=== PATIENT | female | born 1960 | race Two or more races ===

== ENCOUNTER → 2016-06-09 | Outpatient (CLI) | payer OTHER ==
--- NOTE | ~2016-06-09 | MY11 ---
[facility] A Service of [facility] RADIOLOGY TEXT RESULTS PATIENT: MERCY MAY LOCATION: [facility] : 64 UNIT #: [id number] AGE: [address]: YANELIS MCCULLOUGH APRN SEX: F ORDER DR: [id number] [facility] [address] [place], [place] [address] [id number] O MR#: [id number] Acc #: [id number] NAME: MERCY MAY : 1960 SEX: F STUDY DATE/TIME: 06/09/2016 10:26 UNIT: [facility] ROOM: STUDY DESCRIPTION: MY Mammogram Screening Dig Josh Attending Physician: Tatum Mccullough M.D. Ordering Physician: Tatum Mccullough M.D. Primary Care Physician: Rj Conn M.D. MEDICAL IMAGING REPORT This report is preliminary unless electronic signature is present EXAM Digital screening mammogram with CAD HISTORY Routine screening PROCEDURE Bilateral CC and MLO views obtained on a digital mammography unit. FDA-approved CAD device utilized. COMPARISON 02/21/2013 and 05/13/2006 FINDINGS Scattered fibroglandular density. There is no dominant mass. There is a 10.0 mm asymmetry in the lateral left breast not seen on the priors. It is not well placed on the MLO view. IMPRESSION Incomplete. Recommend left diagnostic mammogram to evaluate a 10.0 mm asymmetry in the lateral left breast not seen on prior studies. Recommend a true lateral view and spot compression views. If an abnormality persists, and can be localized, ultrasound is suggested at that time. Patients over the age of 40 are entered into a reminder system with target due date for the next mammogram. A result letter will also be sent to the patient. BIRADS 0 Incomplete: Need Additional Imaging Evaluation and/or Prior Mammograms for Comparison [facility] A Service of [facility] RADIOLOGY TEXT RESULTS PATIENT: MERCY MAY LOCATION: [facility] : 64 UNIT #: [id number] AGE: [address]: YANELIS MCCULLOUGH APRN SEX: F ORDER DR: Dictated by... Chris Erwin M.D. THIS IS AN ELECTRONICALLY VERIFIED REPORT Chris Erwin M.D. at 06/11/2016 7:08 AM Shemar TD: 06/10/2016 15:38 JOB #: [id number] MEDICAL IMAGING REPORT COPY
== END | disposition home or self-care (01) ==
LOC: CWCC 10:08
DX: Z12.31 Encounter for screening mammogram for malignant neoplasm of breast (principal); R92.8 Other abnormal and inconclusive findings on diagnostic imaging of breast
CPT/HCPCS: G0202

== ENCOUNTER → 2016-06-23 | Outpatient (CLI) | payer OTHER ==
--- NOTE | ~2016-06-23 | US24 ---
[facility] A Service of [facility] RADIOLOGY TEXT RESULTS PATIENT: MERCY MAY LOCATION: [facility] : 64 UNIT #: [id number] AGE: [address]: ODETTE MCCULLOUGH APRN SEX: F ORDER DR: [id number] [facility] [address], [place] [address] [id number] O MR#: [id number] Acc #: [id number] NAME: MERCY MAY : 1960 SEX: F STUDY DATE/TIME: 06/23/2016 8:34 UNIT: [facility] ROOM: STUDY DESCRIPTION: US Breast Unilateral Attending Physician: Odette Mccullough Referring Physician: Odette Mccullough Ordering Physician: Tatum Mccullough M.D. Primary Care Physician: Rj Conn M.D. MEDICAL IMAGING REPORT This report is preliminary unless electronic signature is present EXAM Targeted ultrasound left breast 06/23/2016 Please see additional views left breast same date for combined report. BIRADS: 3- Probably benign findings. Short term followup recommended. Dictated by... Papo Lizama M.D. THIS IS AN ELECTRONICALLY VERIFIED REPORT Papo Lizama M.D. at 06/23/2016 4:11 PM HERSON/minoo TD: 06/23/2016 11:21 JOB #: [id number] MEDICAL IMAGING REPORT COPY
--- NOTE | ~2016-06-23 | MY7 ---
[facility] A Service of [facility] RADIOLOGY TEXT RESULTS PATIENT: MERCY MAY LOCATION: [facility] : 64 UNIT #: [id number] AGE: [address]: YANELIS MCCULLOUGH APRN SEX: F ORDER DR: [id number] [facility] [address] [place], [place] [address] [id number] O MR#: [id number] Acc #: [id number] NAME: MERCY MAY : 1960 SEX: F STUDY DATE/TIME: 06/23/2016 8:07 UNIT: [facility] ROOM: STUDY DESCRIPTION: MY Mammogram Dx Dig Lt Attending Physician: Tatum Mccullough M.D. Referring Physician: Tatum Mccullough M.D. Ordering Physician: Tatum Mccullough M.D. Primary Care Physician: Rj Conn M.D. MEDICAL IMAGING REPORT This report is preliminary unless electronic signature is present EXAM Additional views of the left breast and targeted left breast ultrasound 07/10/2016 INDICATION 56-year-old female returning for additional views of the left breast for a nodular asymmetry identified on her recent screening study of 06/09/2016. No new problems. TECHNIQUE MLO, true lateral, and spot CC, MLO and exaggerated CC lateral views of the left breast were obtained and reviewed with an FDA-approved CAD device. COMPARISON 06/09/2016, 02/21/2013, 05/13/2006. FINDINGS MAMMOGRAPHIC FINDINGS: Communication with the patient throughout the patient counter today was facilitated by an outside gauge maker apprentice. The nodular density in the posterior outer hemisphere left breast persists on spot compression in the exaggerated CC lateral projection. Imaging features suggest this may be an intramammary node. It is also seen on the MLO projection posteriorly, projecting over the pectoralis muscle. Targeted ultrasound was, thereafter, performed. ULTRASOUND LEFT BREAST: The patient was initially scanned by the technologist and then rescanned in my presence. Multiple benign-appearing lymph nodes are present in the lateral hemisphere left breast. Imaging was performed from the 2 o'clock through the 4 o'clock positions with concentration at the 3 o'clock position where the nodule was identified on the patient's mammogram. Multiple benign-appearing intramammary nodes are present extending into the left axilla. These correspond to STS. [facility] A Service of [facility] RADIOLOGY TEXT RESULTS PATIENT: MERCY MAY LOCATION: [facility] : 64 UNIT #: [id number] AGE: [address]: YANELIS MCCULLOUGH LAW[employer] SEX: F ORDER DR: benign-appearing lymph nodes on the patient's mammogram. The 1 cm nodular density at 3 o'clock which prompted additional imaging today may correspond to a lymph node at 3 o'clock 15 cm from the nipple, but this is not definitive. Regardless, there is no suspicious nodule, mass, or shadowing in the left breast on ultrasound in the area of interest. Review of the patient's prior imaging studies dating back to 2006, demonstrates a similar-appearing nodule in the same clock position on the examination of 05/13/2006 on an axillary tail view. Once again, this is favored to represent an intramammary node and probably corresponds to the nodule identified on the older 2006 study. Suggest the patient undergo a repeat left diagnostic mammogram in 6 months to document expected stability of the probably benign 1 cm nodule at posterior 3 o'clock. Findings and recommendations were discussed with the patient and with the assistance of the on-site controller. She was encouraged to return prior to 6-month follow up if new abnormalities develop. She voiced understanding and agreement. IMPRESSION 1. Probably benign intramammary node measuring 1 cm at the posterior 3 o'clock position left breast superimposed of the pectoralis muscle. This probably corresponds to a similar-appearing nodule on a distant mammogram from 2006. Ultrasound demonstrated multiple lymph nodes in this clock position with no additional suspicious finding. A unilateral left diagnostic mammogram in 6 months is recommended to document expected stability of this probably benign finding. See discussion above. Patient's over the age of 40 are entered into a reminder system with target due date for the next mammogram. BIRADS: 3 Probably benign finding; short interval followup suggested. Dictated by... Papo Lizama M.D. THIS IS AN ELECTRONICALLY VERIFIED REPORT Papo Lizama M.D. at 06/23/2016 4:11 PM HERSON/dulce TD: 06/23/2016 11:15 JOB #: [id number] MEDICAL IMAGING REPORT COPY
== END | disposition home or self-care (01) ==
LOC: CMAM 07:39
DX: N64.89 Other specified disorders of breast (principal)
CPT/HCPCS: 76641; G0206